=== PATIENT | female | born 1980 | race Caucasian/White ===

== ENCOUNTER 2025-01-08 09:27 | Outpatient (CLI) | payer BC, SELFPAY | END 2025-01-08 09:28 | disposition home or self-care (01) | PROVIDERS: Visit Provider Physician Assistant Medical | DX: R53.83 Other fatigue (principal); R21 Rash and other nonspecific skin eruption; M25.50 Pain in unspecified joint; I73.00 Raynaud's syndrome without gangrene | CPT/HCPCS: 80053; 82550; 84443; 86038; 86140; 86225; 86376; 87086 ==

== ENCOUNTER 2025-04-02 08:49 | Outpatient (CLI) | payer BC, SELFPAY ==
--- NOTE | 2025-04-02 10:07 | P.ANES_ITS ---
Anesthesia Charges Start Date/Time Anesthesia Start Date: 04/02/25 Anesthesia Start Time: 09:44 Stop Date/Time Anesthesia Stop Date: 04/02/25 Anesthesia Stop Time: 10:05 Coding CPT Codes CPT Codes: LUCIA LWR INTST SCR COLSC - 03497 ([id number]) P2 - PATIENT W/MILD SYST DISEASE, QX - OPERATIONS AND MAINTENANCE SUPERVISOR SVC W/ MD MED DIRECTION, QK - BLOW MOLD TECHNICIAN 2-4 CNCRNT ANES PROC
--- NOTE | 2025-04-02 10:07 | W.ANESCHARGE ---
Anesthesia Charges Start Date/Time Anesthesia Start Date: 04/02/25 Anesthesia Start Time: 09:44 Stop Date/Time Anesthesia Stop Date: 04/02/25 Anesthesia Stop Time: 10:05 Coding CPT Codes CPT Codes: LUCIA LWR INTST SCR COLSC - 19377 ([id number]) P2 - PATIENT W/MILD SYST DISEASE, QX - REMEDIAL TEACHER SVC W/ MD MED DIRECTION, QK - FOOD PROCESSOR 2-4 CNCRNT ANES PROC
--- NOTE | 2025-04-02 11:29 | P.ANES_ITS ---
Anesthesia Charges Start Date/Time Anesthesia Start Date: 04/02/25 Anesthesia Start Time: 09:44 Stop Date/Time Anesthesia Stop Date: 04/02/25 Anesthesia Stop Time: 10:05 Coding CPT Codes CPT Codes: LUCIA LWR INTST SCR COLSC - 74777 ([id number]) QX - DIE TURNER SVC W/ MED DIRECTION, P2 - PATIENT W/MILD SYST DISEASE, QK - SUPERVISOR CLAIMS 2-4 CNCRNT ANES PROC
--- NOTE | 2025-04-02 11:29 | W.ANESCHARGE ---
Anesthesia Charges Start Date/Time Anesthesia Start Date: 04/02/25 Anesthesia Start Time: 09:44 Stop Date/Time Anesthesia Stop Date: 04/02/25 Anesthesia Stop Time: 10:05 Coding CPT Codes CPT Codes: LUCIA LWR INTST SCR COLSC - [id number] ([id number]) QX - KINDERGARTNER SVC W/ MED DIRECTION, P2 - PATIENT W/MILD SYST DISEASE, QK - PRINT MACHINE OPERATOR 2-4 CNCRNT ANES PROC
== END 2025-04-02 08:50 | disposition home or self-care (01) ==
LOC: OP CLINIC 08:50
PROVIDERS: PCP Physician Assistant Medical; Visit Provider Surgery
DX: Z12.11 Encounter for screening for malignant neoplasm of colon (principal); Z86.0100 Personal history of colon polyps, unspecified; Z83.719 Family history of colon polyps, unspecified; K57.30 Diverticulosis of large intestine without perforation or abscess without bleeding
CPT/HCPCS: 00812; 45378; J2704

== ENCOUNTER 2025-06-06 15:56 | Outpatient (CLI) | payer BC, SELFPAY ==
--- NOTE | 2025-06-06 16:00 | CRLHL7_ITS ---
For Patients: As a result of the Century Cures Act, medical imaging exams and procedure reports are released immediately into your electronic medical record. You may view this report before your referring provider. If you have questions, please contact your health care provider. Indication: Chronic sinusitis. Technique: Noncontrast CT of the paranasal sinuses with multiplanar reconstruction utilizing bone and soft tissue algorithms. Comparison: None available. Findings: Frontal sinuses: Clear. Maxillary sinuses: Clear with patent ostiomeatal complexes and accessory maxillary ostia. Ethmoid sinuses: Clear. Sphenoid sinuses: Clear with patent ostia. Nasal cavity: Essentially midline nasal septum with no large septal spur. Other: Symmetric nasopharynx. Unremarkable orbits and imaged intracranial structures. Impression: Clear paranasal sinuses. Please note that all CT scans at this facility use dose modulation, iterative reconstruction, and/or weight-based dosing when appropriate to reduce radiation dose to as low as reasonably achievable. Dictated by Trell Gonzales MD @ 06/07/2025 9:59:44 PM (Electronically Signed)
== END 2025-06-06 15:57 | disposition home or self-care (01) ==
LOC: CT 15:57
PROVIDERS: PCP Physician Assistant Medical; Visit Provider Otolaryngology
DX: J32.9 Chronic sinusitis, unspecified (principal)
CPT/HCPCS: 70486

== ENCOUNTER 2025-07-18 14:03 | Outpatient (CLI) | payer BC, SELFPAY ==
--- NOTE | 2025-08-29 13:24 | W.PM.SLEEP ---
Sleep Study Details Details Interpreting Provider: Cristobal Date of Sleep Study: 07/18/25 Sleep Study Details: STUDY TYPE:? Home unattended ? BMI:? 25.06 ORDERING PROVIDER:? Cristobal INDICATION:? Concern for sleep apnea ? SLEEP SUMMARY:? 331.5 minutes monitored RESPIRATORY SUMMARY:? AHI 9.0 per rule 1 a, 5.6 per CMS guideline Low oxygen 90 Snoring 94.7% PERIODIC LIMB MOVEMENTS OF SLEEP:? Not recorded CARDIAC:? Range 59-95, mean 70.6 beats per minute IMPRESSION:? Mild obstructive sleep apnea RECOMMENDATION: Treatment options include CPAP dental appliance and/or airway expansion surgery.
== END 2025-07-18 14:04 | disposition home or self-care (01) ==
LOC: SLEEP 14:04
PROVIDERS: PCP Physician Assistant Medical; Visit Provider Otolaryngology
DX: G47.33 Obstructive sleep apnea (adult) (pediatric) (principal)
CPT/HCPCS: 95806